=== PATIENT | male | born 1995 | race Two or more races ===

== ENCOUNTER 2020-11-24 22:17 | Inpatient (IN) | payer SELFPAY ==
--- NOTE | 2020-11-24 22:31 | ED_ITS ---
HPI - Psych General Chief Complaint: Psychiatric Symptoms Stated Complaint: SI Time Seen by Provider: 11/24/20 22:31 Source: patient Mode of arrival: ambulatory Limitations: no limitations History of Present Illness HPI Narrative: 25-year-old male with no significant past medical history presents with suicidal ideation. He has attempted suicide in the past, over the past 2 weeks tried twice with overdose Percocet which was unsuccessful and attempted to cut his wrists and throat with a knife. Patient's best friend , he is going through divorce, and he drinks alcohol on a daily basis. He does not report illicit drug use, homicidal ideation, or auditory or visual hallucinations. MD complaint: suicidal ideation and alcohol abuse Onset (ago): unknown Duration: constant History of same: No Context: recent alcohol abuse and significant life stressor Associated psychiatric symptoms: depression and suicidal ideation Treatments prior to arrival: none If self harm: admits thoughts of self harm Related Data Allergies Allergy/AdvReac Type Severity Reaction Status Date / Time aspirin Allergy Unknown hives Verified 11/24/20 22:45 ibuprofen Allergy Unknown hives Verified 11/24/20 22:45 SEAFOOD Allergy Severe ANAPHYLAXIS Uncoded 07/16/20 17:08 Review of Systems Review of Systems: Constitutional: No Fever, No Chills ENT/Mouth: No Ear Pain, No Nasal Congestion, No sore throat Eyes: No Eye Pain, No Swelling, No Redness Cardiovascular: No Chest Pain, No SOB Respiratory: No Cough, No Sputum, No Dyspnea Gastrointestinal: No Nausea, No Vomiting, No Diarrhea, No Hematochezia, No Melena Genitourinary: No Dysuria, No Urinary Frequency, No Hematuria Musculoskeletal: No Myalgias Skin: No Skin Lesions, No rash Neuro: No Weakness, No Numbness, No Paresthesias, No Dizziness, No Headache Psych: positive Anxiety, positive Depression, positive SI, positive ETOH Heme/Lymph: No Lymphadenopathy Endocrine: No Polyuria, No Polydipsia Yes all other systems are reviewed and are negative [facility] Past Medical History Attestation statement: The following information was validated with the patient. Source: old records reviewed Medical History PTSD (post-traumatic stress disorder) Social History Social History Advance Directives: No Physical Exam Vital Signs: Vital Signs: Last Vital Signs Temp 98.0 F 11/24/20 23:14 Pulse 99 11/24/20 23:14 Resp 18 11/24/20 23:14 BP 151/89 H 11/24/20 23:14 Pulse Ox 99 11/24/20 23:14 Body Mass Index 25.8 Appearance: Alert. Oriented X3. No acute distress. Eyes: Pupils equal, round and reactive to light. ENT: Pharynx normal. Neck: Normal inspection. Neck supple. CVS: Normal heart rate and rhythm. Pulses normal. Respiratory: No respiratory distress. Breath sounds normal. Abdomen: Soft and nontender. Skin: Skin warm and dry. Normal skin color. Normal skin turgor. Extremities: No lower extremity edema. Neuro: No motor deficit. No sensory deficit. Course Course Course Narrative: 25-year-old male with past medical history of PTSD presents with suicidal ideation. He was attempting to cut himself with a knife when bystander prevented him. Last week he did try to overdose on Percocet. Plan of care is for CBC, Chem 7, drugs of abuse screen and ETOH. Section 12 and BHN consult. Sign-out to Dr. Fraser [facility] - Psych Differential Diagnosis Differential diagnosis: Likely acute psychosis, suicidal ideation, depression, drug-induced psychotic disorder, acute anxiety, substance abuse, alcohol intoxication and mood disorder Restraints Face to Face Assessment: Face to Face Assessment: Current Situation: After assessment of the patient, a review of the pertinent medical record and a discussion with nursing staff, I feel the patient requires a restrain intervention. Reaction To: [] Medical Condition: [] Behavioral State: [] Continued Need: [] Medical Records Attestation: I reviewed the patient's medical records. Lab Data Attestation: I reviewed the patient's lab results. Result diagrams: 11/24/20 22:53 Labs: Lab Results 11/24/20 11/24/20 11/24/20 Range/Units 22:53 22:53 22:59 WBC 7.0 (4.8-10.8) X10*3/uL RBC 4.84 (4.60-5.80) X10*6/uL Hgb 14.3 (14.0-18.0) g/dl Hct 44.3 (42-52) % MCV 91.5 (80-98) fL MCH 29.5 (27.0-33.0) pg MCHC 32.3 (31.0-36.0) g/dl RDW 13.0 (11.0-16.0) % Plt Count 303 (160-400) X10*3/uL MPV 9.1 L (9.4-12.4) fL Immature Gran % (Auto) 0.1 (0.0-0.4) % Neut % (Auto) 57.6 (45-73) % Lymph % (Auto) 34.1 (20-40) % [place] % (Auto) 6.9 (2-11) % Eos % (Auto) 1.0 (0-4) % Baso % (Auto) 0.3 (0-2) % Lymph # (Auto) 2.4 (1.2-4.9) X10*3/uL [place] # (Auto) 0.5 (0.1-1.2) X10*3/uL Eos # (Auto) 0.1 (0.0-0.4) X10*3/uL Baso # (Auto) 0.0 (0.0-0.2) X10*3/uL Abs Immat Gran (auto) 0.01 (0.00-0.03) X10*3/uL Absolute Neuts (auto) 4.0 (2.0-8.3) X10*3/uL Absolute Nucleated RBC 0.000 (0.0-0.012) X10*3/uL Nucleated RBC % (auto) 0.0 (0.0-0.2) /100WBC Urine Opiates Screen Not Detected (Not Detect) Ur Barbiturates Screen Not Detected (Not Detect) Ur Phencyclidine Scrn Not Detected (Not Detect) Ur Amphetamines Screen Not Detected (Not Detect) U Benzodiazepines Scrn Not Detected (Not Detect) Urine Cocaine Screen Not Detected (Not Detect) U Marijuana (THC) Screen Not Detected (Not Detect) Ethyl Alcohol 127 mg/dL Discharge Plan Discharge Clinical Impression: Depression Qualifiers: Depression Type: unspecified Qualified Code(s): F32.9 - Major depressive disorder, single episode, unspecified Patient Disposition: Home, Self-Care Instructions: Depression (ED) Additional Instructions: Please follow-up with outpatient psychiatry. Please consider detox for alcohol abuse. Thank you for choosing this emergency department for evaluation. Please follow-up with primary care physician as needed. Return to the emergency department for any new, concerning, or worsening symptoms.
[2020-11-24 22:59] LABS: Basophils Percent Auto 0.3 % (0-2); Eosinophils Absolute Auto 0.1 X10*3/uL (0.0-0.4); Hematocrit 44.3 % (42-52); Hemoglobin 14.3 g/dl (14.0-18.0); Imm Gran Abs Auto 0.01 X10*3/uL (0.00-0.03); Imm Gran Pct Auto 0.1 % (0.0-0.4); Lymphocytes Absolute Auto 2.4 X10*3/uL (1.2-4.9); Lymphocytes Percent Auto 34.1 % (20-40); MANUAL DIFF FLAG NO; Mean Corpuscular HGB Conc 32.3 g/dl (31.0-36.0); Mean Corpuscular Hemoglobin 29.5 pg (27.0-33.0); Mean Corpuscular Volume 91.5 fL (80-98); Mean Platelet Volume 9.1 fL (9.4-12.4); Monocytes Absolute Auto 0.5 X10*3/uL (0.1-1.2); Monocytes Percent Auto 6.9 % (2-11); Neutrophils Percent Auto 57.6 % (45-73); Platelet Count 303 X10*3/uL (160-400); Red Blood Count 4.84 X10*6/uL (4.60-5.80)
[2020-11-24 23:14] VITALS: BP 151/89; PULSE 99; RESP 18; TEMP 36.7; O2SAT 99; BMI 25.8
[2020-11-24 23:24] LABS: Ethanol 127 mg/dL
[2020-11-24 23:33] LABS: Amphetamine Screen Urine Not Detected (Not Detect); Barbiturates, Urine Not Detected (Not Detect); Benzodiazepines Screen Urine Not Detected (Not Detect); Cannabinoid Screen Urine Not Detected (Not Detect); Cocaine Screen Urine Not Detected (Not Detect); Opiate Screen Urine Not Detected (Not Detect); Phencyclidine Screen Urine Not Detected (Not Detect)
--- NOTE | 2020-11-25 02:44 | PC.NURSE ---
Patient disposition updated, patient is on section 12 in-patient bed search, patient and provider aware of it.
[2020-11-25 06:00] VITALS: BP 147/88; PULSE 84; RESP 18; TEMP 36.7; O2SAT 97
[2020-11-25 06:48] LABS: COVID-19 Test Negative (Negative)
[2020-11-25 08:46] VITALS: BP 152/80; PULSE 86; TEMP 36.9; O2SAT 97
--- NOTE | 2020-11-25 09:21 | PC.NURSE ---
PT SLEPT UNTIL AROUND 0830, ATE BREAKFAST AND NOW TAKING A SHOWER
--- NOTE | 2020-11-25 14:57 | PC.NURSE ---
Report received. Pt asleep at current, no signs of distress. Respirations even and unlabored
[2020-11-25 15:27] VITALS: BP 129/77; PULSE 86; RESP 18; TEMP 36.7; O2SAT 97
--- NOTE | 2020-11-25 15:55 | PC.NURSE ---
BHN at bedside for MSU
--- NOTE | 2020-11-25 16:55 | PC.NURSE ---
Pt sitting in bed at current, calm and cooperative, no complaints at this time. Remains a section 12 bed search.
--- NOTE | 2020-11-25 20:47 | PC.NURSE ---
Patient is calm and pleasant, currently in shower, no distress reported/observed, will continue to monitor.
[2020-11-25 21:20] VITALS: BP 134/86; PULSE 77; RESP 18; TEMP 37; O2SAT 97
[2020-11-26] VITALS: RESP 17
[2020-11-26 06:00] VITALS: BP 131/74; PULSE 72; RESP 18; TEMP 37.2; O2SAT 98
--- NOTE | 2020-11-26 07:01 | PC.NURSE ---
Report received. Pt currently sleeping, respirations even and unlabored, in no apparent distress. Pt is inpatient bedsearch.
[2020-11-26 09:15] VITALS: BP 101/72; PULSE 75; RESP 16; TEMP 36.9; O2SAT 98
[2020-11-26 16:22] VITALS: BP 102/66; PULSE 83; RESP 18; TEMP 36.4; O2SAT 98
--- NOTE | 2020-11-26 16:34 | ECG_ITS ---
Test Reason : ALCOHOL USE DISORDER Blood Pressure : / mmHG Vent. Rate : 070 BPM Atrial Rate : 070 BPM P-R Int : 142 ms QRS Dur : 098 ms QT Int : 396 ms P-R-T Axes : 042 086 031 degrees QTc Int : 427 ms Normal sinus rhythm Normal ECG No previous ECGs available Referred By: Diana Masterson Electronically Signed By:Franck Jones
[2020-11-26 18:27] VITALS: BP 127/79; PULSE 74; TEMP 36.8
--- NOTE | 2020-11-26 18:44 | PC.ADMIT ---
Pt presented to [facility] after feeling SI. Pt had a recent breakup with his who is the Mother of his 2 children. Pt has been drinking on the weekends but, had not drank for 3 weeks prior to Monday having a beer before coming to the hospital. 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 Pt has not providers and no insurance. Pt pleasant and cooperative. Pt is not on meds currently. Pt contracts for safety. Pt denies HI. Pt does not hear AH/VH. Pt was shown the unit and his room. Pt did say that he has trauma from childhood but, did not want to elaborate. Pt arrived on M5 at 1632. Pt states that [place] his is the only person on his contact list. He currently is living with his Parents.
[2020-11-26] MEDS: traZODone HCL 50 MG TABLET PO (21:49)
[2020-11-26] MEDS: hydrOXYzine HCL 25 MG TABLET PO (21:49)
[2020-11-27 06:35] VITALS: BP 126/70; PULSE 72; RESP 16; TEMP 36.7; O2SAT 99
[2020-11-27 08:31] LABS: Estimated Average Glucose 100 mg/dL; Hemoglobin A1c % 5.1 %
[2020-11-27 08:35] LABS: Alanine Aminotransferase 21 U/L (0-40); Albumin Level 4.4 g/dL (3.5-5.0); Alkaline Phosphatase 84 U/L (39-117); Anion Gap 11 (12-20); Aspartate Amino Transferase 18 U/L (5-37); Bilirubin Total 0.7 mg/dL (0.0-1.0); Blood Urea Nitrogen 14 mg/dL (9-16); Calcium 9.2 mg/dL (8.4-10.2); Carbon Dioxide 29 mmol/L (22-29); Chloride 104 mmol/L (96-108); Cholesterol 203 mg/dL; Creatinine Clr Calc Pharmacy 112.7; Estimated Glomerular Filt Rate > 60; Glucose Fasting 93 mg/dL (60-99); HDL Cholesterol 44 mg/dL; LDL Cholesterol Calculated 129 mg/dl; Magnesium 2.3 mg/dL (1.6-2.6); Potassium 4.1 mmol/l (3.3-5.1); Sodium 140 mmol/L (135-145); Total Protein 6.9 g/dL (6.5-8.0); Triglycerides 153 mg/dL
[2020-11-27 08:57] LABS: Free T4 (Free Thyroxine) 0.94 ng/dL (0.71-1.85); Thyroid Stimulating Hormone 0.74 uIU/mL (0.32-4.0)
--- NOTE | 2020-11-27 13:34 | PC.NURSE ---
PT SIGNED A 3 DAY NOTICE ON 11/27/20 THAT WILL BE UP ON Mon12/02/20
--- NOTE | 2020-11-27 13:47 | HO.PSYADMNOT ---
HPI Chief Complaint: Depression Alcohol use disorder Sources of Information: patient interviewed, chart reviewed and crisis/core team assessment reviewed HPI Narrative: 25 yo male, father of two, ages 6 and 3.5 presents for eval after making suicidal statements and gestures (with a knife and by taking 12 Percocet last week). States he had searched for a gun but was unable to find one. Reports primary precipitant is loss of 5 year relationship with the mother of his children due to his drinking and labile moods. Reports 6-7 beers daily, cannabis tid for appetite and sleep. Stopped alcohol 3-4 weeks ago but drank [employer]. Reports lability of mood, possibly some hypomania, sleep disturbance with KIM, Latency sx (using ZQuil and Cannabis). Pt reports he has a court date on 03/04/21 as he thought he was being ambushed by the [employer] but was being chased by police. 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 [employer] Substance History: Alcohol 6-7 beers daily-reports stopping 3-4 weeks ago and picking up [employer] Cannabis tid for appetite and sleep Trauma History: Yes, Beginning at age 6 Diagnostics Vital Signs (24Hr): Vital Signs - 24 hr 11/26/20 16:22 11/26/20 18:27 11/27/20 06:35 Temperature 97.6 F 98.3 F 98.0 F Pulse Rate 83 74 72 Respiratory Rate 18 16 Blood Pressure 102/66 127/79 126/70 Pulse Oximetry 98 99 Body Mass Index 25.8 Labs Results: 11/24/20 22:53 11/27/20 07:52 Labs: Laboratory Results - last 48 hr 11/27/20 11/27/20 07:52 07:52 Sodium 140 Potassium 4.1 Chloride 104 Carbon Dioxide 29 Anion Gap 11 L BUN 14 Creatinine 0.92 Estim Creat Clear Calc 112.7 Estimated GFR > 60 Fasting Glucose 93 Estimat Average Glucose 100 Hemoglobin A1c % 5.1 Calcium 9.2 Magnesium 2.3 Total Bilirubin 0.7 AST 18 ALT 21 Alkaline Phosphatase 84 Total Protein 6.9 Albumin 4.4 Triglycerides 153 Cholesterol 203 LDL Cholesterol, Calc 129 HDL Cholesterol 44 TSH 0.74 Free T4 0.94 Meds/Allergies Meds Home Medications Acetaminophen (Acetaminophen 325 Mg Tablet) 650 mg PO Q6H PRN PRN Reason: Headache/Pain Mild Scale (1-3) Al Hydroxide/Mg Hydroxide (Magnesium Hydrox/Alum Hydrox 30 Ml Oral.Susp) 30 ml PO Q6H PRN PRN Reason: Heartburn/Nausea Hydroxyzine HCl (Hydroxyzine Hcl 25 Mg Tablet) 25 mg PO BEDTIME PRN PRN Reason: Anxiety Last Admin: 11/26/20 21:49 Dose: 25 mg Documented by: Lorazepam (Lorazepam 1 Mg Tablet) 1 mg PO Q4H PRN PRN Reason: Alcohol Withdrawal Last Admin: 11/27/20 14:27 Dose: 1 mg Documented by: Magnesium Hydroxide (Milk Of Magnesia 30 Ml Oral.Susp) 30 ml PO DAILY PRN PRN Reason: Constipation Mirtazapine (Mirtazapine 7.5 Mg Tablet) 7.5 mg PO BEDTIME ISAAC Multivitamins/Vitamin C (Multivitamin Tablet) 1 tab PO DAILY ISAAC Thiamine HCl (Thiamine Hcl 100 Mg Tablet) 100 mg PO DAILY ISAAC Trazodone HCl (Trazodone Hcl 50 Mg Tablet) 50 mg PO BEDTIME PRN PRN Reason: Insomnia Last Admin: 11/26/20 21:49 Dose: 50 mg Documented by: Allergies Allergies Allergy/AdvReac Type Severity Reaction Status Date / Time aspirin Allergy Unknown hives Verified 11/24/20 22:45 ibuprofen Allergy Unknown hives Verified 11/24/20 22:45 SEAFOOD Allergy Severe ANAPHYLAXIS Uncoded 07/16/20 17:08 Mental Status Exam Mental Status Exam Patient Appearance: Appropriate Patient Orientation: Person, Place, Time and Situation Level of Consciousness: Awake and Alert Patient Behavior: Appropriate and Cooperative Mood Description: Depressed, Anxious and Apprehensive Affect Description: Constricted and Anxious Patient Cognition Impaired: No Ability to Follow Directions: Good Speech Pattern: Spontaneous Speech Memory Description: Intact Hallucinations: None Delusions: Not Present Thought Process: Intact Thought Content: positive for Intact Depressive Symptoms: Increased Anxiety, Insomnia, Increased Irritability, Difficulty Sleeping, Changes in Appetite, Hopelessness, Feelings of Guilt, Unhappiness, Increased Fatigue, Thoughts of /Suicide, Low Self Esteem, Loss of Energy and Difficulty Concentrating Judgement: Fair Assessment & Plan Assessment & Plan (1) Alcohol use disorder, severe, dependence: Status: Acute Code(s): F10.20 - Alcohol dependence, uncomplicated Assessment and Plan: Pt reports he is having no symptoms of alcohol withdrawal. Reports consistent use stopped 3-4 weeks ago. Cannabis use he reports is specifically for sleep and appetite. Discussed medication to initially target these symptoms to begin treatment. He agrees. Pt agreeable to family meeting with . He is hoping their relationship will return if he is in treatment as mood and alcohol use are what he identifies as the primary reason for the relationship ending. (2) Depression: Status: Acute Qualifiers: Depression Type: unspecified Qualified Code(s): F32.9 - Major depressive disorder, single episode, unspecified Code(s): F32.9 - Major depressive disorder, single episode, unspecified Assessment and Plan: -Mirtazapine 7.5 mg HS
[2020-11-27] MEDS: LORazepam 1 MG TABLET PO ×2 (14:27→21:18)
--- NOTE | 2020-11-27 16:08 | P.HPPS_ITS ---
HPI Chief Complaint: Depression Alcohol use disorder [facility] Medical History (Updated 11/27/20 @ 13:48 by Diana Masterson APRN) Alcohol use disorder, severe, dependence PTSD (post-traumatic stress disorder) Diagnostics Vital Signs (24Hr): Vital Signs - 24 hr 11/26/20 16:22 11/26/20 18:27 11/27/20 06:35 Temperature 97.6 F 98.3 F 98.0 F Pulse Rate 83 74 72 Respiratory Rate 18 16 Blood Pressure 102/66 127/79 126/70 Pulse Oximetry 98 99 Body Mass Index 25.8 Labs Results: 11/24/20 22:53 11/27/20 07:52 Labs: Laboratory Results - last 48 hr 11/27/20 11/27/20 07:52 07:52 Sodium 140 Potassium 4.1 Chloride 104 Carbon Dioxide 29 Anion Gap 11 L BUN 14 Creatinine 0.92 Estim Creat Clear Calc 112.7 Estimated GFR > 60 Fasting Glucose 93 Estimat Average Glucose 100 Hemoglobin A1c % 5.1 Calcium 9.2 Magnesium 2.3 Total Bilirubin 0.7 AST 18 ALT 21 Alkaline Phosphatase 84 Total Protein 6.9 Albumin 4.4 Triglycerides 153 Cholesterol 203 LDL Cholesterol, Calc 129 HDL Cholesterol 44 TSH 0.74 Free T4 0.94 Meds/Allergies Meds Home Medications Acetaminophen (Acetaminophen 325 Mg Tablet) 650 mg PO Q6H PRN PRN Reason: Headache/Pain Mild Scale (1-3) Al Hydroxide/Mg Hydroxide (Magnesium Hydrox/Alum Hydrox 30 Ml Oral.Susp) 30 ml PO Q6H PRN PRN Reason: Heartburn/Nausea Hydroxyzine HCl (Hydroxyzine Hcl 25 Mg Tablet) 25 mg PO BEDTIME PRN PRN Reason: Anxiety Last Admin: 11/26/20 21:49 Dose: 25 mg Documented by: Lorazepam (Lorazepam 1 Mg Tablet) 1 mg PO Q4H PRN PRN Reason: Alcohol Withdrawal Last Admin: 11/27/20 14:27 Dose: 1 mg Documented by: Magnesium Hydroxide (Milk Of Magnesia 30 Ml Oral.Susp) 30 ml PO DAILY PRN PRN Reason: Constipation Multivitamins/Vitamin C (Multivitamin Tablet) 1 tab PO DAILY ISAAC Thiamine HCl (Thiamine Hcl 100 Mg Tablet) 100 mg PO DAILY ISAAC Trazodone HCl (Trazodone Hcl 50 Mg Tablet) 50 mg PO BEDTIME PRN PRN Reason: Insomnia Last Admin: 11/26/20 21:49 Dose: 50 mg Documented by: Allergies Allergies Allergy/AdvReac Type Severity Reaction Status Date / Time aspirin Allergy Unknown hives Verified 11/24/20 22:45 ibuprofen Allergy Unknown hives Verified 11/24/20 22:45 SEAFOOD Allergy Severe ANAPHYLAXIS Uncoded 07/16/20 17:08
[2020-11-27 18:00] VITALS: BP 142/80; PULSE 87; TEMP 37.1
[2020-11-27] MEDS: hydrOXYzine HCL 25 MG TABLET PO (21:18)
[2020-11-27] MEDS: Mirtazapine 7.5 MG TABLET PO (21:19)
[2020-11-27] MEDS: traZODone HCL 50 MG TABLET PO (21:19)
[2020-11-28 06:15] VITALS: BP 100/57; PULSE 75; RESP 16; TEMP 36.6; O2SAT 98
[2020-11-28] MEDS: Thiamine HCL 100 MG TABLET PO (09:17)
[2020-11-28] MEDS: Multivitamin TABLET 1 TAB PO (09:17)
[2020-11-28] MEDS: LORazepam 1 MG TABLET PO ×3 (12:59→22:46)
--- NOTE | 2020-11-28 17:28 | HO.PSYCHPN ---
Subjective Subjective Date of Service: 11/28/20 Reason For Visit: Depression Alcohol use disorder Subjective Notes: 3 Day Interim History: Pleasant. Reports feeling depressed but no SI. Wants OP providers but no program. Appears flushed CIWA [address]. Ct plan. Medication Compliance: Yes Side effects from medications: No Attending Groups: Yes Review of Systems Review of Systems Constitutional: No Fever, No Chills ENT/Mouth: No Ear Pain, No Nasal Congestion, No sore throat Eyes: No Eye Pain, No Swelling, No Redness Cardiovascular: No Chest Pain, No SOB Respiratory: No Cough, No Sputum, No Dyspnea Gastrointestinal: No Nausea, No Vomiting, No Diarrhea, No Hematochezia, No Melena Genitourinary: No Dysuria, No Urinary Frequency, No Hematuria Musculoskeletal: No Myalgias Skin: No Skin Lesions, No rash Neuro: No Weakness, No Numbness, No Paresthesias, No Dizziness, No Headache Psych: positive Anxiety, positive Depression, positive SI, positive ETOH Heme/Lymph: No Lymphadenopathy Endocrine: No Polyuria, No Polydipsia Yes all other systems are reviewed and are negative Mental Status Exam Mental Status Exam Patient Appearance: Appropriate Patient Orientation: Person, Place, Time and Situation Level of Consciousness: Awake and Alert Patient Behavior: Appropriate and Cooperative Mood Description: Depressed, Anxious and Apprehensive Affect Description: Constricted and Anxious Patient Cognition Impaired: No Ability to Follow Directions: Good Speech Pattern: Spontaneous Speech Memory Description: Intact Diagnostics Vital Signs (24Hr): Vital Signs - 24 hr 11/27/20 18:00 11/28/20 06:15 Temperature 98.8 F 97.8 F Pulse Rate 87 75 Respiratory Rate 16 Blood Pressure 142/80 H 100/57 L Pulse Oximetry 98 Body Mass Index 25.8 Labs Results: 11/24/20 22:53 11/27/20 07:52 Labs: Laboratory Results - last 48 hr 11/27/20 11/27/20 07:52 07:52 Sodium 140 Potassium 4.1 Chloride 104 Carbon Dioxide 29 Anion Gap 11 L BUN 14 Creatinine 0.92 Estim Creat Clear Calc 112.7 Estimated GFR > 60 Fasting Glucose 93 Estimat Average Glucose 100 Hemoglobin A1c % 5.1 Calcium 9.2 Magnesium 2.3 Total Bilirubin 0.7 AST 18 ALT 21 Alkaline Phosphatase 84 Total Protein 6.9 Albumin 4.4 Triglycerides 153 Cholesterol 203 LDL Cholesterol, Calc 129 HDL Cholesterol 44 TSH 0.74 Free T4 0.94 Medications Medications Current Medications Generic Name Dose Route Start Last Admin Trade Name Freq PRN Reason Stop Dose Admin Acetaminophen 650 mg 11/26/20 16:34 Acetaminophen 325 Mg Tablet PO Q6H PRN Headache/Pain Mild Scale (1-3) Al Hydroxide/Mg Hydroxide 30 ml 11/26/20 16:34 Magnesium Hydrox/Alum Hydrox 30 Ml Oral.Susp PO Q6H PRN Heartburn/Nausea Hydroxyzine HCl 25 mg 11/26/20 16:34 11/27/20 21:18 Hydroxyzine Hcl 25 Mg Tablet PO 25 mg BEDTIME PRN Administration Anxiety Lorazepam 1 mg 11/27/20 13:49 11/28/20 12:59 Lorazepam 1 Mg Tablet PO 1 mg Q4H PRN Administration Alcohol Withdrawal Magnesium Hydroxide 30 ml 11/26/20 16:34 Milk Of Magnesia 30 Ml Oral.Susp PO DAILY PRN Constipation Mirtazapine 7.5 mg 11/27/20 21:00 11/27/20 21:19 Mirtazapine 7.5 Mg Tablet PO 7.5 mg BEDTIME ISAAC Administration Multivitamins/Vitamin C 1 tab 11/28/20 09:00 11/28/20 09:17 Multivitamin Tablet PO 1 tab DAILY ISAAC Administration Thiamine HCl 100 mg 11/28/20 09:00 11/28/20 09:17 Thiamine Hcl 100 Mg Tablet PO 100 mg DAILY ISAAC Administration Trazodone HCl 50 mg 11/26/20 16:34 11/27/20 21:19 Trazodone Hcl 50 Mg Tablet PO 50 mg BEDTIME PRN Administration Insomnia Allergies Allergies Allergy/AdvReac Type Severity Reaction Status Date / Time aspirin Allergy Unknown hives Verified 11/24/20 22:45 ibuprofen Allergy Unknown hives Verified 11/24/20 22:45 SEAFOOD Allergy Severe ANAPHYLAXIS Uncoded 07/16/20 17:08 Assessment & Plan Assessment & Plan (1) Alcohol use disorder, severe, dependence: Status: Acute Code(s): F10.20 - Alcohol dependence, uncomplicated Assessment and Plan: Pt reports he is having no symptoms of alcohol withdrawal. Reports consistent use stopped 3-4 weeks ago. Cannabis use he reports is specifically for sleep and appetite. Discussed medication to initially target these symptoms to begin treatment. He agrees. Pt agreeable to family meeting with . He is hoping their relationship will return if he is in treatment as mood and alcohol use are what he identifies as the primary reason for the relationship ending. (2) Depression: Qualifiers: Depression Type: unspecified Qualified Code(s): F32.9 - Major depressive disorder, single episode, unspecified Status: Acute Code(s): F32.9 - Major depressive disorder, single episode, unspecified Assessment and Plan: -Mirtazapine 7.5 mg HS Greater than 50% of the session was spent on counseling and/or coordination of care Reason for contiued inpatient stay Substantial Risk for: harm to self
[2020-11-28 18:00] VITALS: BP 130/86; PULSE 99; TEMP 36.9
[2020-11-28] MEDS: traZODone HCL 50 MG TABLET PO (20:25)
[2020-11-28] MEDS: Mirtazapine 7.5 MG TABLET PO (20:25)
[2020-11-28] MEDS: hydrOXYzine HCL 25 MG TABLET PO (20:25)
[2020-11-28] MEDS: Acetaminophen 325 MG TABLET 650 MG PO (22:36)
[2020-11-29 06:00] VITALS: BP 101/63; PULSE 82; TEMP 36.6
--- NOTE | 2020-11-29 08:10 | P.PNPSI_ITS ---
Subjective Subjective Date of Service: 11/29/20 Reason For Visit: Depression Alcohol use disorder Interim History: Pleasant. Reports feeling depressed but no SI. Wants OP providers but no program. Ct plan. Review of Systems Review of Systems Constitutional: No Fever, No Chills ENT/Mouth: No Ear Pain, No Nasal Congestion, No sore throat Eyes: No Eye Pain, No Swelling, No Redness Cardiovascular: No Chest Pain, No SOB Respiratory: No Cough, No Sputum, No Dyspnea Gastrointestinal: No Nausea, No Vomiting, No Diarrhea, No Hematochezia, No Melena Genitourinary: No Dysuria, No Urinary Frequency, No Hematuria Musculoskeletal: No Myalgias Skin: No Skin Lesions, No rash Neuro: No Weakness, No Numbness, No Paresthesias, No Dizziness, No Headache Psych: positive Anxiety, positive Depression, positive SI, positive ETOH Heme/Lymph: No Lymphadenopathy Endocrine: No Polyuria, No Polydipsia Yes all other systems are reviewed and are negative Mental Status Exam Mental Status Exam Patient Appearance: Appropriate Patient Orientation: Person, Place, Time and Situation Level of Consciousness: Awake and Alert Patient Behavior: Appropriate and Cooperative Mood Description: Depressed, Anxious and Apprehensive Affect Description: Constricted and Anxious Patient Cognition Impaired: No Ability to Follow Directions: Good Speech Pattern: Spontaneous Speech Memory Description: Intact Diagnostics Vital Signs (24Hr): Vital Signs - 24 hr 11/28/20 18:00 11/29/20 06:00 Temperature 98.4 F 97.8 F Pulse Rate 99 82 Blood Pressure 130/86 101/63 Body Mass Index 25.8 Labs Results: 11/24/20 22:53 11/27/20 07:52 Labs: Laboratory Results - last 48 hr 11/27/20 11/27/20 07:52 07:52 Sodium 140 Potassium 4.1 Chloride 104 Carbon Dioxide 29 Anion Gap 11 L BUN 14 Creatinine 0.92 Estim Creat Clear Calc 112.7 Estimated GFR > 60 Fasting Glucose 93 Estimat Average Glucose 100 Hemoglobin A1c % 5.1 Calcium 9.2 Magnesium 2.3 Total Bilirubin 0.7 AST 18 ALT 21 Alkaline Phosphatase 84 Total Protein 6.9 Albumin 4.4 Triglycerides 153 Cholesterol 203 LDL Cholesterol, Calc 129 HDL Cholesterol 44 TSH 0.74 Free T4 0.94 Medications Medications Current Medications Generic Name Dose Route Start Last Admin Trade Name Freq PRN Reason Stop Dose Admin Acetaminophen 650 mg 11/26/20 16:34 11/28/20 22:36 Acetaminophen 325 Mg Tablet PO 650 mg Q6H PRN Administration Headache/Pain Mild Scale (1-3) Al Hydroxide/Mg Hydroxide 30 ml 11/26/20 16:34 Magnesium Hydrox/Alum Hydrox 30 Ml Oral.Susp PO Q6H PRN Heartburn/Nausea Hydroxyzine HCl 25 mg 11/26/20 16:34 11/28/20 20:25 Hydroxyzine Hcl 25 Mg Tablet PO 25 mg BEDTIME PRN Administration Anxiety Lorazepam 1 mg 11/27/20 13:49 11/28/20 22:46 Lorazepam 1 Mg Tablet PO 1 mg Q4H PRN Administration Alcohol Withdrawal Magnesium Hydroxide 30 ml 11/26/20 16:34 Milk Of Magnesia 30 Ml Oral.Susp PO DAILY PRN Constipation Mirtazapine 7.5 mg 11/27/20 21:00 11/28/20 20:25 Mirtazapine 7.5 Mg Tablet PO 7.5 mg BEDTIME ISAAC Administration Multivitamins/Vitamin C 1 tab 11/28/20 09:00 11/28/20 09:17 Multivitamin Tablet PO 1 tab DAILY ISAAC Administration Thiamine HCl 100 mg 11/28/20 09:00 11/28/20 09:17 Thiamine Hcl 100 Mg Tablet PO 100 mg DAILY ISAAC Administration Trazodone HCl 50 mg 11/26/20 16:34 11/28/20 20:25 Trazodone Hcl 50 Mg Tablet PO 50 mg BEDTIME PRN Administration Insomnia Allergies Allergies Allergy/AdvReac Type Severity Reaction Status Date / Time aspirin Allergy Unknown hives Verified 11/24/20 22:45 ibuprofen Allergy Unknown hives Verified 11/24/20 22:45 SEAFOOD Allergy Severe ANAPHYLAXIS Uncoded 07/16/20 17:08 Assessment & Plan Assessment & Plan (1) Alcohol use disorder, severe, dependence: Status: Acute Code(s): F10.20 - Alcohol dependence, uncomplicated Assessment and Plan: Pt reports he is having no symptoms of alcohol withdrawal. Reports consistent use stopped 3-4 weeks ago. Cannabis use he reports is specifically for sleep and appetite. Discussed medication to initially target these symptoms to begin treatment. He agrees. Pt agreeable to family meeting with . He is hoping their relationship will return if he is in treatment as mood and alcohol use are what he identifies as the primary reason for the relationship ending. (2) Depression: Qualifiers: Depression Type: unspecified Qualified Code(s): F32.9 - Major depressive disorder, single episode, unspecified Status: Acute Code(s): F32.9 - Major depressive disorder, single episode, unspecified Assessment and Plan: -Mirtazapine 7.5 mg HS Greater than 50% of the session was spent on counseling and/or coordination of c are Reason for contiued inpatient stay Substantial Risk for: harm to self
[2020-11-29] MEDS: LORazepam 1 MG TABLET PO ×3 (08:43→21:00)
[2020-11-29] MEDS: Thiamine HCL 100 MG TABLET PO (08:43)
[2020-11-29] MEDS: Multivitamin TABLET 1 TAB PO (08:43)
[2020-11-29] MEDS: Acetaminophen 325 MG TABLET 650 MG PO (16:57)
[2020-11-29 18:00] VITALS: BP 137/77; PULSE 103; TEMP 37.1
[2020-11-29] MEDS: Mirtazapine 7.5 MG TABLET PO (20:59)
[2020-11-29] MEDS: hydrOXYzine HCL 25 MG TABLET PO (21:00)
[2020-11-29] MEDS: traZODone HCL 50 MG TABLET PO (21:00)
[2020-11-30 06:15] VITALS: BP 101/58; PULSE 72; RESP 16; TEMP 36.6; O2SAT 98
[2020-11-30] MEDS: Multivitamin TABLET 1 TAB PO (08:32)
[2020-11-30] MEDS: LORazepam 1 MG TABLET PO (08:32)
[2020-11-30] MEDS: Thiamine HCL 100 MG TABLET PO (08:32)
--- NOTE | 2020-11-30 13:23 | PC.NURSE ---
PT IS READY AND AWARE OF DISCHARGE. PT IS BEING DISCHARGED ON 11/30/2020 AT APPROXIMATELY 1400. PT REPORTS NO AUDITORY OR VISUAL HALLUCINATIONS. PT DENIES URGES TO HURT HIMSELF OR OTHERS. PT IS CALM AND COOPERATIVE. PT IS INVOLVED IN TREATMENT PLAN. PT REPORTS ANXIETY THAT IS DECREASING. PT STATES THAT HE THINKS HE WILL NOT BE DEPRESSED ANYMORE ONCE HE LEAVES THE HOSPITAL. PTS PAPERWORK WILL BE FAXED OVER TO PROVIDERS PER PROTOCOL.
[2020-11-30 14:48] LABS: Folate 9.9 ng/mL (> or = 4.0); Vitamin B12 540 pg/mL (200-900)
--- NOTE | 2020-12-23 14:16 | PM.PSYDC ---
DS: Providers Provider Date of Service: 12/23/20 Date of admission: 11/26/20 15:52 Primary care physician: No PCP DS: Diagnosis Discharge Diagnosis (1) Alcohol use disorder, severe, dependence: Status: Acute Problem details: Reports drinking beer, 6-7 daily. 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 Reported primary stressor is the loss of a five year relationship with the mother of his children due to alcohol use and mood lability. Reports sx of lability, possibly hypomania, sleep disturbance with KIM, latency sx (using Cannabis and ZQuil). Pt also reports an upcoming court date on 03/04/21 as he thought he was being ambushed by a gang but was being pursued by police. He fled the scene as he was unaware police were chasing him (he feared for his life). This is also an identified stress DS: Medications Discharge Medications Home Medications: Previous Rx's Medication Instructions Recorded mirtazapine [Remeron] 15 mg PO BEDTIME #30 tab 11/30/20 multivitamin with folic acid 1 tab PO DAILY #30 tab 11/30/20 [Tab-A-Frank] thiamine mononitrate (vit B1) 100 mg PO DAILY #30 tab 11/30/20 Discharge Plan Discharge Anticipated Discharge Date/Time: 11/30/20 16:00 Patient Disposition: Home, Self-Care Referrals: Therapy & Psychiatry [Other] (All appointments are via telehealth currently) Garth Tomlin (therapist) [Other] - 12/11/20 9:00 am (Telehealth appointment) Margo Read (psychiatrist) [Other] - 12/25/20 4:00 pm (Telehealth appointment) Margo Read (psychiatrist) [Other] - 01/22/21 10:00 am (Telehealth appointment) Physician,None [Primary Care Provider] - Discharge Medications: New thiamine mononitrate (vit B1) 100 mg Tablet 100 mg PO DAILY Qty: 30 RF: 0 multivitamin with folic acid [Tab-A-Frank] 400 mcg Tablet 1 tab PO DAILY Qty: 30 RF: 0 mirtazapine [Remeron] 15 mg tablet 15 mg PO BEDTIME Qty: 30 RF: 0 Discharge Orders: Discharge Order (Routine); Ordered 11/30/20 Ordered By: Diana Masterson Diet: advance to usual diet Activity on Discharge: As tolerated Stand Alone Forms: Patient Portal Discharge page Print Language: [place] Activity Restrictions/Additional Instructions: Please follow-up with outpatient psychiatry. Please consider detox for alcohol abuse. Thank you for choosing this emergency department for evaluation. Please follow-up with primary care physician as needed. Return to the emergency department for any new, concerning, or worsening symptoms. Visit Report Forms: Patient Portal Discharge page Care Plan Goals: mood stability decrease of depressive symptoms sobriety Health Concerns: alcohol use Plan of Treatment: Follow up with out patient providers Trial of Mirtazapine for 30 days. Patient Instructions: Depression (ED) Discharge Date/Time: 11/30/20 14:05 Mental Status Exam Mental Status Exam Patient Appearance: Appropriate Patient Orientation: Person, Place, Time and Situation Level of Consciousness: Alert Patient Behavior: Appropriate Mood Description: Calm Affect Description: Calm Patient Cognition Impaired: No Ability to Follow Directions: Good Speech Pattern: Spontaneous Speech Memory Description: Intact Hallucinations: None Delusions: Not Present Thought Process: Intact Thought Content: positive for Intact Depressive Symptoms: Difficulty Sleeping (Mirtazapine trial initiated), Changes in Appetite (mirtazapine trial initiated), Unhappiness (relationship discord-beginning to sort this out with his ) and Thoughts of /Suicide (denied SI plan or intent) Judgement: Good Data Data Completed and Pending Completed studies during hospitalization [Text1]: 11/27-CMP WNL Anion Gap 11; Lipids: Cholesterol 203, Triglycerides 153, LDL 129; HDL 44, TSH and FT4 0.94 DS: Summary Hospital Course Hospital Course: Pt was admitted on a conditional voluntary and signed a three day notice of intent to leave upon admission. He reported no history of in patient care or out patient therapy or psychopharmacology intervention. 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 He discussed the primary use for cannabis was for sleep and appetite. He was willing to stop the cannabis for a month and complete a trial of Mirtazapine for depressive symptoms, having education that side effects of Mirtazapine would involve an increase in appetite and sedation. He agreed to family intervention with while in hospital. He was hopeful that he could improve their relationship if he continues in out patient treatment. He declined addiction residential/[facility] referral, stating he would address these issues in out-patient psychotherapy and consider further recommendations from there. Social service was in contact with his who reported some improvement in patient during his brief stay as well. Pt has no symptoms of withdrawal, his diagnostics were withing paramaters and he was able to work with the nursing and therapy teams while in hospital without difficulty. Time spent discussing smoking cessation with patient: more than 10 minutes Status at Discharge Cognitive/behavioral status at discharge: alert, oriented, mood stable, agrees to attend out patient care. Denied suicidal ideation and plan. He was communicating with his . Functional status at discharge: independent ambulation Overall status at discharge: patient is back to baseline Time Spent with Patient Time attestation: Total time spent providing and/or coordinating discharge services: 35 Time spent: Greater than 30 minutes
== END 2020-11-30 14:05 | disposition home or self-care (01) | DRG 881 ==
LOC: HO.ED 11-26 15:52 → HO.PM5 11-26 15:56
PROVIDERS: Emergency Medicine; Nurse Practitioner Family; Admitting Provider Psychiatry & Neurology Psychiatry; Emergency Provider Emergency Medicine; Visit Provider Clinical Nurse Specialist Psychiatric/Mental Health, Adult
DX: F32.9 Major depressive disorder, single episode, unspecified (principal); R45.851 Suicidal ideations; F43.10 Post-traumatic stress disorder, unspecified; F10.20 Alcohol dependence, uncomplicated; Z91.5 Personal history of self-harm; Z20.822 Contact with and (suspected) exposure to COVID-19; Z88.6 Allergy status to analgesic agent; Z79.899 Other long term (current) drug therapy
CPT/HCPCS: 36415; 80053; 80061; 80307; 80320; 82607; 82746; 83036; 83735; 84439; 84443; 85025; 87635; 93005; 99285

== ENCOUNTER 2022-08-10 22:11 | Emergency (ER) | payer OTHER, SELFPAY ==
--- NOTE | ~2022-08-10 | CT_ITS ---
EXAMINATION: CT FACIAL BONES WITHOUT CONTRAST CLINICAL INFORMATION: Evaluate for mandible fracture COMPARISON: None TECHNIQUE: Multidetector helical imaging was performed in the axial plane with generation of coronal and sagittal reformatted images. This CT examination was performed using dose optimization techniques as appropriate, variously including the following: *Automated exposure control *Adjustment of mA and/or kV according to patient size (this includes techniques or standardized protocols for targeted exams where dose is matched to indication/reason for exam; i.e. extremities or head) *Use of iterative reconstruction technique DLP: 320 mGy-cm FINDINGS: No evidence of acute facial fracture. Periapical lucencies involving right mandibular and left maxillary molars. Moderate right and mild left maxillary sinus polypoid mucosal thickening. The paranasal sinuses otherwise clear. Leftward deviation of the nasal septum with osseous spur contacting the base of the left inferior turbinate. Left vik bullosa. The mastoid and middle ear cavities are clear. No acute abnormality of the visualized intracranial contents. Normal appearance of the globes and orbits. Normal appearance of the upper cervical spine and visualized cervical soft tissues. CT/CT facial bones wo IV con IMPRESSION: No evidence of acute facial fracture.
[2022-08-10 22:53] VITALS: BP 123/80; PULSE 102; RESP 16; TEMP 37.1; O2SAT 98; BMI 26.6
--- NOTE | 2022-08-11 02:12 | ED_ITS ---
HPI - Fall General Chief Complaint: Fall Stated Complaint: fell,facial laceration Time Seen by Provider: 08/11/22 02:08 Source: patient Mode of arrival: ambulatory Limitations: no limitations History of Present Illness HPI Narrative: Apparently patient was going upstairs missed the step and fell hitting his chin to the edge of the step comes here with laceration and painful to open his jaw. No other injuries no loss of consciousness patient had few beers before that Related Data Previous Rx's Medication Instructions Recorded mirtazapine 15 mg tablet (Remeron) 15 mg PO BEDTIME #30 tabs 11/30/20 multivitamin with folic acid 400 1 tab PO DAILY #30 tabs 11/30/20 mcg tablet (Tab-A-Frank) thiamine mononitrate (vit B1) 100 100 mg PO DAILY #30 tabs 11/30/20 mg tablet Allergies Allergy/AdvReac Type Severity Reaction Status Date / Time aspirin Allergy Unknown hives Verified 11/24/20 22:45 ibuprofen Allergy Unknown hives Verified 11/24/20 22:45 SEAFOOD Allergy Severe ANAPHYLAXIS Uncoded 07/16/20 17:08 Review of Systems Review of Systems: Yes all other systems are reviewed and are negative [facility] Past Medical History Medical History Alcohol use disorder, severe, dependence PTSD (post-traumatic stress disorder) Social History Social History Household Members: Family Housing: House Second Hand Smoke Exposure: No Advance Directives: No service: No Sexual orientation: Straight/Heterosexual Physical Exam Vital Signs: Vital Signs: Last Vital Signs Temp 98.7 F 08/10/22 22:53 Pulse 102 H 08/10/22 22:53 Resp 16 08/10/22 22:53 BP 123/80 08/10/22 22:53 Pulse Ox 98 08/10/22 22:53 O2 Del Method 08/10/22 22:53 BMI result Body Mass Index 26.6 Appearance: Alert. Oriented X3. No acute distress. Eyes: PERRLA, No Nystagmus ENT: Pharynx normal. Oral Mucosa moist 1 cm laceration left side of chin which is through and through teeth are intact Neck: Normal inspection. Neck supple. CVS: Normal heart rate and rhythm. Pulses normal. Respiratory: No respiratory distress. Equal air entry bilateral Abdomen: Soft and nontender. Bowel sounds are present, Skin: Skin warm and dry. Normal skin color. Normal skin turgor. Extremities: No lower extremity edema. No calf tenderness Neuro: Oriented X 3. No motor deficit. No sensory deficit.No cerebellar signs , cranial nerves II-XII intact Procedures Laceration Laceration 1: Site: face Side (If applicable): left Size (cm): 1 Description: linear Depth: simple, single layer Skin layer closed with: other (Dermabond) MDM - Fall MDM Narrative Medical decision making narrative: Facial CT negative for fracture laceration was approximated using glue Discharge Plan Discharge Clinical Impression: Chin laceration Patient Disposition: Home, Self-Care Instructions: Laceration (ED), Skin Adhesive Care (ED) Additional Instructions: Local Care as advised Prescriptions: No Action thiamine mononitrate (vit B1) 100 mg Tablet 100 mg PO DAILY Qty: 30 0RF multivitamin with folic acid [Tab-A-Frank] 400 mcg Tablet 1 tab PO DAILY Qty: 30 0RF mirtazapine [Remeron] 15 mg tablet 15 mg PO BEDTIME Qty: 30 0RF Stand Alone Forms: Work/School Release
--- NOTE | 2022-08-11 03:16 | PC.NURSE ---
pt a&o,no sob or chest pain, bleeding is controlled at this time. Reviewed discharge instructions with pt. pt verbalized understanding. No distress at time of discharge.
[2022-08-11 03:19] VITALS: RESP 20
== END 2022-08-11 03:20 | disposition home or self-care (01) ==
PROVIDERS: Emergency Provider Internal Medicine
DX: S01.81XA Laceration without foreign body of other part of head, initial encounter (principal); W17.89XA Other fall from one level to another, initial encounter; Y93.89 Activity, other specified; Y92.038 Other place in apartment as the place of occurrence of the external cause; Y99.9 Unspecified external cause status
CPT/HCPCS: 12011; 70486; 99284

== ENCOUNTER 2022-08-12 07:15 | Emergency (ER) | payer OTHER, SELFPAY ==
--- NOTE | ~2022-08-12 | CT_ITS ---
EXAMINATION: CT FACIAL BONES WITH CONTRAST CLINICAL INFORMATION: Left mandibular swelling. Question abscess. COMPARISON: Facial CT 08/11/2022. TECHNIQUE: [employer] images were obtained. CT imaging of the face was performed after the intravenous administration of 85 mL Omnipaque 350. Data was reformatted into multiplanar images at the acquisition workstation. This CT examination was performed using dose optimization techniques as appropriate, variously including the following: *Automated exposure control *Adjustment of mA and/or kV according to patient size (this includes techniques or standardized protocols for targeted exams where dose is matched to indication/reason for exam; i.e. extremities or head) *Use of iterative reconstruction technique DLP: 515 mGy-cm FINDINGS: There is asymmetric inflammatory stranding within the subcutaneous soft tissues over the left anterior mandible best depicted on axial image 56 of 256 series 2 and there is a tiny focus of subcutaneous gas. No discrete drainable fluid collection. Findings are therefore most consistent with cellulitis. Pharyngeal mucosal spaces are symmetric. Parapharyngeal and retromaxillary fat is preserved. Supervisor Packing spaces are grossly symmetric. The parotid and submandibular glands are normal. The tongue base and epiglottis are normal. Preepiglottic fat is preserved. There is no acute osseous finding. The temporomandibular joints are symmetric. Mastoid air cells and middle ear cavities are well aerated. There are retention cyst within the alveolar recesses of both maxillary sinuses. Otherwise no active paranasal sinus disease. Limited visualization of the intracranial anatomy reveals no abnormal finding. CT/CT facial bones w IV con IMPRESSION: Facial cellulitis involving the subcutaneous soft tissues overlying left anterior mandible. No discrete drainable fluid collection.
[2022-08-12 07:23] VITALS: BP 128/76; PULSE 78; RESP 18; TEMP 36.7; O2SAT 96; BMI 25.0
--- NOTE | 2022-08-12 08:46 | ED.GENADULT ---
HPI - General Adult General Chief complaint: General Medical Stated complaint: L side of face swollen Time Seen by Provider: 08/12/22 08:05 Source: patient Mode of arrival: ambulatory History of Present Illness HPI narrative: 27-year-old male who presents after having sustained a fall with chin laceration it yesterday, was seen and then states that he had Dermabond applied to the external wound on his chin but states that since that time he has had significant left-sided jaw swelling and pain at the left mandibular joint without fever chills but decreasing ability to open his mouth. He is otherwise handling his secretions and denies any shortness of breath. Related Data Previous Rx's Medication Instructions Recorded mirtazapine 15 mg tablet (Remeron) 15 mg PO BEDTIME #30 tabs 11/30/20 multivitamin with folic acid 400 1 tab PO DAILY #30 tabs 11/30/20 mcg tablet (Tab-A-Frank) thiamine mononitrate (vit B1) 100 100 mg PO DAILY #30 tabs 11/30/20 mg tablet amoxicillin 875 mg-potassium 1 tab PO Q12H 7 days #14 tabs 08/12/22 clavulanate 125 mg tablet Allergies Allergy/AdvReac Type Severity Reaction Status Date / Time aspirin Allergy Unknown hives Unverified 08/12/22 07:23 ibuprofen Allergy Unknown hives Verified 08/12/22 07:23 SEAFOOD Allergy Severe ANAPHYLAXIS Uncoded 07/16/20 17:08 Review of Systems Review of Systems: Pertinent positives and negatives as stated in HPI 10 point review of systems is otherwise negative. [facility] Past Medical History Source: nursing notes reviewed Medical History Alcohol use disorder, severe, dependence PTSD (post-traumatic stress disorder) Social History Social History Household Members: Family Housing: House Second Hand Smoke Exposure: No Advance Directives: No Advance Directives Information Provided: No service: No Sexual orientation: Straight/Heterosexual Physical Exam ED Vital Signs: Vital Signs - 24 hr 08/12/22 07:23 08/12/22 11:42 Temperature 98.1 F 98.3 F Pulse Rate 78 67 Respiratory Rate 18 18 Blood Pressure 128/76 119/82 Pulse Oximetry 96 98 Oxygen Delivery Method Room Air Room Air BMI result Body Mass Index 25.0 VITAL SIGNS: Reviewed. GENERAL: Well developed, well nourished, in no acute distress. HEAD: Normocephalic/atraumatic, significant left-sided facial swelling with papular rash noted to the left cheek area EYES: PERRLA, EOMI EARS: Ext canals without abnormality NOSE: Nares patent bilateral OROPHARYNX: no oral lesions noted, posterior pharynx clear, if there is evidence of trismus but patient able to handle secretions, there is left lower lip swelling and on the intraoral aspect there is noted injury to the mucosa at the left mental area NECK: Supple, no adenopathy LUNGS: Normal breath sounds, no stridor. No adventitious sounds or accessory muscle use. SpO2<96> CARDIOVASCULAR: Regular rate and rhythm without noted murmurs, no JVD or lower extremity edema. ABDOMEN: Soft, non-tender, non-distended with bowel sounds. MUSCULOSKELETAL: No tenderness, deformities, or effusions noted on gross inspection. EXTREMITIES: No cyanosis, clubbing or edema. SKIN: Inspection of the skin reveals no rashes NEUROLOGIC: Alert and oriented x 4. Strength and sensation to light touch were grossly intact x 4. Course Course Course Narrative: 27-year-old male with history and clinical presentation consistent with laceration and swelling to the left jaw. He does meet definition of trismus, however suspect that this may be more secondary to underlying pain at the TMJ, CT scan reviewed from yesterday did not show any acute abnormalities but there is no explicit description regarding the temporomandibular joint. Review of all investigations negative for acute findings however there is evidence of mild facial cellulitis without abscess formation and TMJ appears to be intact and aligned. Patient received initial antibiotics here as well as combination analgesics and will be discharged with instructions to complete the entire course of antibiotics as ordered. He will also need to follow-up with his primary care provider. Medical Decision Making Lab Data Result diagrams: 08/12/22 09:27 08/12/22 09:27 Labs: Lab Results 08/12/22 08/12/22 Range/Units 09: 09:27 WBC 8.8 (4.8-10.8) X10*3/uL RBC 4.69 (4.60-5.80) X10*6/uL Hgb 14.2 (14.0-18.0) g/dl Hct 43.3 (42.0-52.0) % MCV 92.3 (80.0-98.0) fL MCH 30.3 (27.0-33.0) pg MCHC 32.8 (31.0-36.0) g/dl RDW 13.2 (11.0-16.0) % Plt Count 252 (160-400) X10*3/uL MPV 9.5 (9.4-12.4) fL Immature Gran % (Auto) 0.3 (0.0-0.4) % Neut % (Auto) 67.2 (45-73) % Lymph % (Auto) 22.9 (20-40) % Faulkner % (Auto) 8.0 (2-11) % Eos % (Auto) 1.3 (0-4) % Baso % (Auto) 0.3 (0-2) % Lymph # (Auto) 2.0 (1.2-4.9) X10*3/uL Faulkner # (Auto) 0.7 (0.1-1.2) X10*3/uL Eos # (Auto) 0.1 (0.0-0.4) X10*3/uL Baso # (Auto) 0.0 (0.0-0.2) X10*3/uL Abs Immat Gran (auto) 0.03 (0.00-0.03) X10*3/uL Absolute Neuts (auto) 5.9 (2.0-8.3) x10*3/uL Absolute Nucleated RBC 0.000 (0.0-0.012) X10*3/uL Nucleated RBC % (auto) 0.0 (0.0-0.2) /100WBC Sodium 139 (135-145) mmol/L Potassium 4.8 (3.3-5.1) mmol/L Chloride 102 (96-108) mmol/L Carbon Dioxide 26 (22-29) mmol/L Anion Gap 16 (12-20) BUN 11 (9-16) mg/dL Creatinine 0.87 (0.5-1.4) mg/dL Estim Creat Clear Calc 117.1 Estimated GFR > 60 Random Glucose 96 (60-115) mg/dL Calcium 9.3 (8.4-10.2) mg/dL Total Bilirubin 1.0 (0.0-1.0) mg/dL AST 53 H (5-37) U/L ALT 112 H (0-40) U/L Alkaline Phosphatase 126 H D (39-117) U/L Total Protein 7.4 (6.5-8.0) g/dL Albumin 4.7 (3.5-5.0) g/dL Discharge Plan Discharge Clinical Impression: Cellulitis of face Patient Disposition: Home, Self-Care Instructions: Cellulitis (ED) Additional Instructions: 1. Resume all home medications as prescribed. 2. Complete the entire course of antibiotics as ordered. 3. Call the office of your primary care provider today and get an appointment for re-evaluation. Return to the ER for worsening symptoms. Prescriptions: New amoxicillin-pot clavulanate 875-125 mg tablet 1 tab PO Q12H 7 Days Qty: 14 0RF No Action thiamine mononitrate (vit B1) 100 mg Tablet 100 mg PO DAILY Qty: 30 0RF multivitamin with folic acid [Tab-A-Frank] 400 mcg Tablet 1 tab PO DAILY Qty: 30 0RF mirtazapine [Remeron] 15 mg tablet 15 mg PO BEDTIME Qty: 30 0RF
[2022-08-12] MEDS: Amoxicillin/Potassium Clav 875 MG TABLET PO (09:05)
[2022-08-12] MEDS: Acetaminophen 325 MG TABLET 975 MG PO (09:05)
[2022-08-12] MEDS: 0.9 % Sodium Chloride 1,000 ML 999 ML IV (09:28)
[2022-08-12 09:31] LABS: MANUAL DIFF FLAG NO
[2022-08-12 09:32] LABS: Basophils Percent Auto 0.3 % (0-2); Eosinophils Absolute Auto 0.1 X10*3/uL (0.0-0.4); Eosinophils Percent Auto 1.3 % (0-4); Hematocrit 43.3 % (42.0-52.0); Hemoglobin 14.2 g/dl (14.0-18.0); Imm Gran Abs Auto 0.03 X10*3/uL (0.00-0.03); Imm Gran Pct Auto 0.3 % (0.0-0.4); Lymphocytes Percent Auto 22.9 % (20-40); Mean Corpuscular HGB Conc 32.8 g/dl (31.0-36.0); Mean Corpuscular Hemoglobin 30.3 pg (27.0-33.0); Mean Corpuscular Volume 92.3 fL (80.0-98.0); Mean Platelet Volume 9.5 fL (9.4-12.4); Monocytes Absolute Auto 0.7 X10*3/uL (0.1-1.2); Neutrophils Absolute Auto 5.9 x10*3/uL (2.0-8.3); Neutrophils Percent Auto 67.2 % (45-73); Platelet Count 252 X10*3/uL (160-400); Red Blood Count 4.69 X10*6/uL (4.60-5.80); Red Cell Distribution Width 13.2 % (11.0-16.0); White Blood Count 8.8 X10*3/uL (4.8-10.8)
--- NOTE | 2022-08-12 09:38 | PC.NURSE ---
l facial wound w swelling and tenderness, aware of care plan, ns bolus infusing, nad
[2022-08-12 10:07] LABS: Alanine Aminotransferase 112 U/L (0-40); Albumin Level 4.7 g/dL (3.5-5.0); Alkaline Phosphatase 126 U/L (39-117); Anion Gap 16 (12-20); Aspartate Amino Transferase 53 U/L (5-37); Blood Urea Nitrogen 11 mg/dL (9-16); Calcium 9.3 mg/dL (8.4-10.2); Carbon Dioxide 26 mmol/L (22-29); Chloride 102 mmol/L (96-108); Creatinine Clr Calc Pharmacy 117.1; Estimated Glomerular Filt Rate > 60; Glucose Random 96 mg/dL (60-115); Potassium 4.8 mmol/L (3.3-5.1); Sodium 139 mmol/L (135-145); Total Protein 7.4 g/dL (6.5-8.0)
[2022-08-12] MEDS: iohexoL 350 MG/ML 100 ML INFUS..BTL IV (10:49)
[2022-08-12 11:42] VITALS: BP 119/82; PULSE 67; RESP 18; TEMP 36.8; O2SAT 98
[2022-08-12] MEDS: dexAMETHasone sod phosphate 4 MG/ML VIAL 8 MG IVPUSH (12:29)
== END 2022-08-12 12:37 | disposition home or self-care (01) ==
PROVIDERS: Emergency Provider Student in an Organized Health Care Education/Training Program
DX: L03.211 Cellulitis of face (principal); R22.0 Localized swelling, mass and lump, head; Z79.899 Other long term (current) drug therapy
CPT/HCPCS: 36415; 70487; 80053; 85025; 96374; 99284; J1100; Q9967